=== PATIENT | male | born 1955 | race Caucasian/White ===

== ENCOUNTER 2020-07-31 10:03 | Emergency (ER) | payer OTHER ==
[~2020-07-31] VITALS: Ht 182.9 cm; Wt 90.7 kg
[2020-07-31] MEDS ORDERED: SYNTHROID75 MCG PO (10:24)
[2020-07-31] MEDS ORDERED: VICODIN HP 10-1 EACH PO (10:24)
[2020-07-31] MEDS ORDERED: TOPROL XL50 M1 PO (10:24)
[2020-07-31] MEDS ORDERED: NAMENDA10 MG PO (10:25)
[2020-07-31] MEDS ORDERED: GRALISE600 MG PO (10:26)
[2020-07-31] MEDS ORDERED: MUCINEX DM ER1 EAC1 PO (16:55)
[2020-07-31] MEDS ORDERED: LEVOFLOXACIN750 MG PO (16:55)
== END 2020-07-31 17:34 | disposition home or self-care (01) ==
LOC: ER 10:03
DX: U07.1 COVID-19 (principal); J12.82 Pneumonia due to coronavirus disease 2019; R50.9 Fever, unspecified; R05 Cough; R06.02 Shortness of breath; R51.9 Headache, unspecified

== ENCOUNTER 2020-08-01 13:54 | Inpatient (IN) | payer OTHER ==
[~2020-08-01] VITALS: Ht 182.9 cm
[~2020-08-01 13:54] MED LIST: GRALISE600 MG PO; LEVOFLOXACIN750 MG PO; MUCINEX DM ER1 EAC1 PO; NAMENDA10 MG PO; SYNTHROID75 MCG PO; TOPROL XL50 M1 PO; VICODIN HP 10-1 EACH PO
== END 2020-08-03 14:54 | disposition home or self-care (01) | DRG 177 ==
LOC: ER 13:54 → MEDJ 18:32
PROVIDERS: ADMIT Internal Medicine; ATTEND Internal Medicine
PROC: 4A12X4Z Monitoring of Cardiac Electrical Activity, External Approach (ICD-10-PCS; 2020-08-01)
PROC: 8E0ZXY6 Isolation (ICD-10-PCS; principal; 2020-08-02)
DX: U07.1 COVID-19 (principal); J12.82 Pneumonia due to coronavirus disease 2019; Z20.822 Contact with and (suspected) exposure to COVID-19; I10 Essential (primary) hypertension; E03.9 Hypothyroidism, unspecified; D64.9 Anemia, unspecified

== ENCOUNTER 2020-08-21 16:43 | Inpatient (IN) | payer OTHER ==
[~2020-08-21] VITALS: Ht 182.9 cm; Wt 90.7 kg
[2020-08-21] MEDS ORDERED: EFESOR (17:04)
[2020-08-23] MEDS ORDERED: VENLAFAXINE HCL75 M1 (13:18)
[2020-08-23] MEDS ORDERED: DIAZEPAM10 MG (13:18)
[2020-08-23] MEDS ORDERED: TIZANIDINE HCL4 MG (13:18)
[2020-08-29] MEDS ORDERED: PROTONIX40 MG PO (16:15)
[2020-08-29] MEDS ORDERED: MEDROLPACK PO (16:15)
[2020-08-29] MEDS ORDERED: Neurin-Sl Tablet Sl SL (16:15)
== END 2020-08-29 17:49 | disposition home or self-care (01) | DRG 177 ==
LOC: ER 16:43 → ICU-2 08-22 14:30 → ICU 08-22 20:49 → MEDI 08-28 19:54
PROVIDERS: ADMIT Internal Medicine; ATTEND Internal Medicine
PROC: 8E0ZXY6 Isolation (ICD-10-PCS; 2020-08-22)
PROC: 30233N1 Transfusion of Nonautologous Red Blood Cells into Peripheral Vein, Percutaneous Approach (ICD-10-PCS; principal; 2020-08-23)
PROC: 02HV33Z Insertion of Infusion Device into Superior Vena Cava, Percutaneous Approach (ICD-10-PCS; 2020-08-24)
PROC: CW1NLZZ Planar Nuclear Medicine Imaging of Whole Body using Gallium 67 (Ga-67) (ICD-10-PCS; 2020-08-26)
DX: U07.1 COVID-19 (principal); J12.82 Pneumonia due to coronavirus disease 2019; I10 Essential (primary) hypertension; G30.9 Alzheimer's disease, unspecified; F02.80 Dementia in other diseases classified elsewhere, unspecified severity, without behavioral disturbance, psychotic disturbance, mood disturbance, and anxiety; Z20.822 Contact with and (suspected) exposure to COVID-19; D50.8 Other iron deficiency anemias; R09.02 Hypoxemia; E03.8 Other specified hypothyroidism

== ENCOUNTER 2021-10-28 11:03 | Outpatient (CLI) | payer OTHER ==
[~2021-10-28 11:03] MED LIST changes: +DIAZEPAM10 MG; +EFESOR; +MEDROLPACK PO; +Neurin-Sl Tablet Sl SL; +PROTONIX40 MG PO; +TIZANIDINE HCL4 MG; +VENLAFAXINE HCL75 M1
== END 2021-10-28 11:05 | disposition home or self-care (01) ==
LOC: RX STUDY 11:03
DX: J98.6 Disorders of diaphragm (principal)